=== PATIENT | female | born 1940 | race Caucasian/White ===

== ENCOUNTER 2019-03-12 10:47 | Emergency (ER) | payer MEDICARE ==
[2019-03-12] MEDS ORDERED: Doxycycline 100 MG Cap PO ONE (12:09)
--- NOTE | 2019-03-12 12:12 | EDM.PDOC ---
ED HPI GENERAL MEDICAL PROBLEM - General Chief Complaint: Bite:Animal, Insect Stated Complaint: TICK BITE ABOVE WAIST LINE ON RIGHT SIDE Time Seen by Provider: 03/12/19 11:21 Source of Information: Reports: Patient History Limitations: Reports: No Limitations - History of Present Illness INITIAL COMMENTS - FREE TEXT/NARRATIVE: 79 yo female presents to ER with deer tick bite to right ABD just above the belt line. Pt feels that tick was attached for less then 24 hours. The area of the bite is red and mildly itchy. 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 No: Crackles, Rhonchi, Wheezing Cardiovascular: Regular Rate, Rhythm, No Murmur Skin Exam: Normal Color, Warm/Dry, Rash (right flank at belt line 1 cm in diameter target lession) Course - Vital Signs Last Recorded V/S: Last Vital Signs Temp 37.1 C 03/12/19 11:36 Pulse 68 03/12/19 11:36 Resp 15 03/12/19 11:36 BP 144/85 H 03/12/19 11:36 Pulse Ox 99 03/12/19 11:36 - Orders/Labs/Meds Meds: Medications Discontinued Medications Generic Name Dose Route Start Last Admin Trade Name Freq PRN Reason Stop Dose Admin Doxycycline Hyclate 200 mg 03/12/19 12:09 Vibramycin PO 03/12/19 12:10 ONETIME ONE Departure - Departure Time of Disposition: 12:10 Disposition: Home, Self-Care 01 Condition: Good Clinical Impression: Tick bite of abdomen Qualifiers: Encounter type: initial encounter Qualified Code(s): S30.861A - Insect bite ( nonvenomous) of abdominal wall, initial encounter - Discharge Information *PRESCRIPTION DRUG MONITORING PROGRAM REVIEWED*: Not Applicable *COPY OF PRESCRIPTION DRUG MONITORING REPORT IN PATIENT JAMARCUS: Not Applicable Instructions: Lyme Disease Referrals: Roman King MD [Primary Care Provider] - Forms: ED Department Discharge Additional Instructions: you were given Doxycycline prophylactically for Lyme disease following a [place] tick bite topical anti-itch as needed
== END 2019-03-12 12:36 | disposition home or self-care (01) ==
LOC: JP.ED 10:47
DX: S30.861A Insect bite (nonvenomous) of abdominal wall, initial encounter (principal); Z88.8 Allergy status to other drugs, medicaments and biological substances; Z90.710 Acquired absence of both cervix and uterus; W57.XXXA Bitten or stung by nonvenomous insect and other nonvenomous arthropods, initial encounter
CPT/HCPCS: 99282; A9270; 99283

== ENCOUNTER 2025-01-27 11:39 | Emergency (ER) | payer MEDICARE | END 2025-01-27 14:33 | disposition home or self-care (01) | LOC: JP.ED 11:39 | DX: T14.8XXA Other injury of unspecified body region, initial encounter (principal); L53.9 Erythematous condition, unspecified; Z90.710 Acquired absence of both cervix and uterus; Z88.1 Allergy status to other antibiotic agents; Z79.899 Other long term (current) drug therapy; W57.XXXA Bitten or stung by nonvenomous insect and other nonvenomous arthropods, initial encounter | CPT/HCPCS: 99282 ==